=== PATIENT | male | born 1985 ===

== ENCOUNTER 2024-04-14 14:13 | Emergency (ER) | payer MEDICAID, SELFPAY ==
[2024-04-14 14:16] VITALS: BP 113/78; PULSE 95; RESP 16; TEMP 37.1; O2SAT 98
--- NOTE | 2024-04-14 14:29 | ED.GENADUL_ITS ---
Discharge Plan Discharge Details Chief Complaint: Vascular Primary Care Provider: Olga Alfredo ED Provider: Brittany Hoff Home Meds and New Rx's Prescriptions: No Action duloxetine 30 mg capsule,delayed release(DR/EC) 30 mg PO DAILY Patient Comments: TAKE ONE CAPSULE BY MOUTH EVERY DAY clonidine HCl 0.1 mg tablet 0.1 mg PO BID PRN Patient Comments: TAKE ONE TABLET BY MOUTH TWICE A DAY NEEDED FOR ANXIETY HPI General Date/Time Provider Initiated Documentation: 04/14/24 14:20 . Limitations to Documentation: no limitations . Information obtained by: patient, family (mom), RN notes reviewed and old records reviewed . History of Present Illness 38 year old M presents to the emergency department with the chief complaint of BLE edema, calf pain, described as moderate and similar to prior episodes, Quality is described as aching, and is localized to the lower extremity. Patient reports no radiation. Patient started experiencing this day(s) (2) and it has been constant. No relieving factors improve symptom(s), and other things that improve symptom(s), Other factors that worsen symptoms (legs in dependent position) . Patient notes no other symptoms.. Patient did receive the following treatments prior to arrival, none Related Data Home Medications Medication Instructions Recorded Confirmed clonidine HCl 0.1 mg tablet 0.1 mg PO BID PRN 04/14/24 04/14/24 duloxetine 30 mg capsule,delayed 30 mg PO DAILY 04/14/24 04/14/24 release Allergies Allergy/AdvReac Type Severity Reaction Status Date / Time No Known Allergies Allergy Verified 04/14/24 14:19 General Stated Complaint: Vascular CHERYL: 3 Review of Systems Constitutional Constitutional: Reports as per HPI, Denies chills, Denies fever(s), Denies headache(s), Denies lethargy and Denies poor appetite Eyes Eyes: Denies change in vision ENT Ears, Nose, Mouth, and Throat: Denies dizziness and Denies headache(s) Cardiovascular Cardiovascular: Reports as per HPI, Denies dyspnea and Denies dyspnea on exertio n Respiratory Respiratory: Reports as per HPI, Denies chest congestion, Denies cough, Denies pain on inspiration, Denies pain with cough, Denies dyspnea and Denies dyspnea on exertion Gastrointestinal Gastrointestinal: Reports as per HPI and Denies abdominal pain Genitourinary Genitourinary: Denies system reviewed and no additional complaints, except as documented (denies change in urinary habits) Musculoskeletal Musculoskeletal: Reports as per HPI Integumentary/Breasts Skin/Breast: Reports as per HPI Neurologic Neurologic: Reports as per HPI, Denies dizziness and Denies headache(s) Exam Const General: cooperative, comfortable, no acute distress, well developed, ill appearing chronically and intoxicated appearing (he states it is from not sleeping) Nutritional Appearance: average body habitus and well nourished Orientation: alert, awake and oriented x3 Resp Effort & Inspection: normal respiratory effort, able to speak in complete sentences and no respiratory distress Auscultation: clear to auscultation bilaterally, no rales, no rhonchi and no wheezes Cardio Rate: regular rate Rhythm: regular rhythm Heart Sounds: S1 normal and S2 normal GI Inspection: normal to inspection, no edema and non-distended Palpation: soft, no hepatosplenomegaly, not firm, no guarding, not rigid and nontender Skin Rashes: rashes noted (erythema, possible petechia to bilateral medial lower calf/ankle) Neuro General: patient alert, patient awake and patient oriented x3 Cognition: normal cognition Speech: speech normal Gait: normal gait Extrem General: capillary refill normal, calf tenderness (bilateral mild calf pain), normal gait, edema Laterality: bilateral (1+ pitting) and other (2+ distal pulses) Course Vital Signs Vital signs: Vital Signs Temperature 37.1 C 04/14/24 14:16 Pulse 95 H 04/14/24 14:16 Respiratory Rate 16 04/14/24 14:16 Blood Pressure 113/78 04/14/24 14:16 Pulse Oximetry 98 04/14/24 14:16 Temperature 37.1 C 04/14/24 14:16 Temperature Source Skin 04/14/24 14:16 Pulse 95 H 04/14/24 14:16 Respiratory Rate 16 04/14/24 14:16 Blood Pressure 113/78 04/14/24 14:16 Blood Pressure Position Sitting 04/14/24 14:16 Pulse Oximetry 98 04/14/24 14:16 Oxygen Delivery Method Room Air 04/14/24 14:16 Oxygen Flow Rate 0 04/14/24 14:16 Pain Level 6 04/14/24 14:16 Medical Decision Making Patient is a plesant 38 year old male, brought in by mom, with c/c of BLE edema that has been worsening x 2 days. Denies trauma. States he has had similar episodes in the past, typically resolves, after sleeping upright in a chair. Has had calf pain. Denes SOB or CP. No hx of DVT, not anticoagulated. Was seen by PCP, they are concerned for possible DVT, recommended evaluation and US in the ED. PMH signficant for chronic pain syndrome, unspecified edema, opioid dependence, depression. He states he is not using illicit substances currently, no ETOH. Has long hx of ETOH abuse though. Mostly stays in bed, on his phone. He has developed cervical deformity which he and mom states are associated with looking at phone all day, starting PT soon. He has been working with PCP to manage depression. Denies fevers/chills. On exam, patient appears frail and chronically ill. He has BLE edema, some redness medially, possible petechia. Exam is not consistent with cellulitis. He has2+ distal pulses. Edema stops mid calf, he does have pain with palpation posteriorly. Sensation intact. No hepatomegally, normal cardiac exam. No personal hx of cardiac issues although mom states family hx of CHF and HTN. PCP primarily concerned for DVT, will obtain US prior to tech leaving. FINDINGS: There is no evidence of intraluminal thrombus and there is normal compression and augmentation demonstrated within the common femoral veins, femoral veins, and popliteal veins of both lower extremities. In the calves the interrogated veins also exhibit normal compression/ augmentation properties. The greater saphenous veins also appear patent as do the saphenofemoral junctions bilaterally.. IMPRESSION: 1. No ultrasound evidence of DVT in either lower extremity. Reevaluated the patient. His legs do not look acutely infected. Without finding of DVT, considered other systemic causes of BLE edema and redness such as liver disease, cardiac issues. Will obtain blood work. He does appear to be intoxicated although patient and family state it is from not sleeping, will obtain UDS as well. At the end of my shift, care transitioned to [facility] with labs pending. Quality:SDOH Health Related Social Needs: No Data to Display [facility] Social History Smoking/Tobacco Use Status: Never Smoking risk assessment performed?: Yes Alcohol Intake: never Drug use: Never Substance use type: does not use Do you feel safe at home: Yes Do you feel safe in your relationship?: Yes
--- NOTE | 2024-04-14 14:30 | DI.US_ITS ---
Exam(s) US EXTREMITY VENOUS BI EXAM: US EXTREMITY VENOUS BI CLINICAL HISTORY: BLE swelling, calf pain TECHNIQUE: Grayscale, color, and doppler imaging of the deep venous system of both lower extremities was performed. COMPARISON: No exams were available for comparison FINDINGS: There is no evidence of intraluminal thrombus and there is normal compression and augmentation demons trated within the common femoral veins, femoral veins, and popliteal veins of both lower extremities. In the calves the interrogated veins also exhibit normal compression/ augmentation properties. The greater saphenous veins also appear patent as do the saphenofemoral junctions bilaterally.. IMPRESSION: 1. No ultrasound evidence of DVT in either lower extremity. DATA REPOSITORY:
[2024-04-14 14:54] VITALS: RESP 16
--- NOTE | 2024-04-14 15:49 | ED.PROG_ITS ---
Date of service: 04/14/24 Time of Service: 15:49 Medical Decision Making This dictation utilizes [id number] dictation software and may contain unedited grammatical errors. Patient seen in sign-out from Brittany Hoff PA-C, please see her complete note. Essentially, this 38 y/o frail chronically ill M with substance abuse issues in the past presents to ED today with a chief complaint of referred by PCP for possible DVT, with negative U/S performed prior to sign-out. Provider added labs to work-up other causes of LE edema like liver pathology and cardiac pathology prior to sign-out. Prior provider does not believe that there is any infectious etiology going on and is checking basic labs for signs of possible CHF or liver dysfunction as cause of the patient's alcohol history. Patients' medical history: Past history of alcohol abuse disorder, sedentary lifestyle. Family and social history: Lives at home with his mom, very sedentary. Pertinent exam findings / vital signs include cachectic, some hemosiderin deposition in his feet, no calf swelling, suspect dependent edema due to sedentary lifestyle and gravity. Differential / pathologies of concern include CHF, liver dysfunction, kidney dysfunction, lower extremity edema. Diagnostic studies of: -Reviewed ultrasound which was negative for DVT. -CBC is benign -Mild anemia -Coags are unremarkable -No kidney dysfunction -Albumin normal, BNP normal -UA benign -UDS shows positive for barbiturates, amphetamines, benzodiazepines Interventions of: -none, recommend PCP f/u with significant ruleout of emergent pathology. ED Course/Assessment/Plan: [ ]. Findings not consistent with [ ]. Disposition of [ ]. Patient verbalized understanding of the plan and return to ED criteria and engaged in shared decision making. Medical Records Medical records reviewed: Yes I reviewed the patient's medical records. Imaging Data Radiologic Study: Attestation: I personally reviewed and interpreted this imaging study as follows: Imaging: Ultrasound Radiologist's impression: EXAM: US EXTREMITY VENOUS BI CLINICAL HISTORY: BLE swelling, calf pain TECHNIQUE: Grayscale, color, and doppler imaging of the deep venous system of both lower extremities was performed. COMPARISON: No exams were available for comparison FINDINGS: There is no evidence of intraluminal thrombus and there is normal compression and augmentation demonstrated within the common femoral veins, femoral veins, and popliteal veins of both lower extremities. In the calves the interrogated veins also exhibit normal compression/ augmentation properties. The greater saphenous veins also appear patent as do the saphenofemoral junctions bilaterally.. IMPRESSION: 1. No ultrasound evidence of DVT in either lower extremity. Lab Data Lab results reviewed: Yes I reviewed the patient's lab results. Labs: Laboratory Tests Range/Units 04/14/24 04/14/24 15:32 16:57 WBC (4.4-10.8) 10^3/uL 7.86 RBC (4.36-5.78) 10^6/uL 3.67 L Hgb (13.5-17.5) g/dL 11.3 L Hct (40.0-50.0) % 33.6 L MCV (80-95) fL 92 MCH (27.0-33.0) pg 30.8 MCHC (32.0-36.0) % 33.6 RDW (11.8-14.1) % 12.9 Plt Count (130-400) 10^3/uL 219 MPV (8.0-11.0) fL 9.7 Immature Gran % % 0.3 Neutrophils % % 60.9 Lymphocytes % % 22.5 Monocytes % % 11.1 Eosinophils % % 4.8 Basophils % % 0.4 Nucleated RBC % (0.0-0.3) % 0.0 Absolute Neutrophils (1.2-6.7) 10^3/uL 4.79 Absolute Lymphocytes (1.2-3.4) 10^3/uL 1.77 Absolute Monocytes (0.1-0.8) 10^3/uL 0.87 H Absolute Eosinophils (0.0-0.7) 10^3/uL 0.38 Absolute Basophils (0.0-0.2) 10^3/uL 0.03 PT (9.1-11.1) sec 10.0 INR (0.9-1.1) 1.0 APTT (23.6-32.8) sec 29.4 Sodium (136-145) mmol/L 137 Potassium (3.5-5.1) mmol/L 3.8 Chloride (98-107) mmol/L 101 Carbon Dioxide (21.0-32.0) mmol/L 29.9 Anion Gap (3-11) mmol/L 6.1 BUN (7-18) mg/dL 9 Creatinine (0.70-1.30) mg/dL 0.6 L Est GFR (CKD-EPI 2020) (mL/min/1.73m2) 125.15 Glucose (74-106) mg/dL 98 Calcium (8.5-10.1) mg/dL 8.6 Magnesium (1.8-2.4) mg/dL 2.0 Total Bilirubin (0.2-1.0) mg/dL 0.3 AST (15-37) U/L 14 L ALT (16-63) U/L 16 Alkaline Phosphatase (46-116) U/L 58 NT-Pro-B Natriuret Pep (<300) pg/mL 47 Total Protein (6.4-8.2) g/dL 6.6 Albumin (3.4-5.0) g/dL 3.4 TSH (0.36-3.74) uIU/mL 0.98 Urine Color (Yellow) Yellow Urine Clarity (Clear) Clear Urine pH (5-8) 7.0 Ur Specific [place] (1.005-1.025) 1.015 Urine Protein (Neg-Trace) mg/dL Negative Urine Ketones (Negative) mg/dL Negative Urine Blood (Negative) Negative Urine Nitrite (Negative) Negative Urine Bilirubin (Negative) Negative Urine Urobilinogen (Up to 0.2) mg/dL 0.2 Ur Leukocyte Esterase (Negative) Negative Urine Glucose (Negative) mg/dL Negative Urine Opiates Screen (Negative) Negative Urine Methadone Screen (Negative) Negative Ur Barbiturates Screen (Negative) Positive A Ur Tricyclics Screen (Negative) Negative Ur Amphetamines Screen (Negative) Positive A U Benzodiazepines Scrn (Negative) Positive A Urine Cocaine Screen (Negative) Negative Ur THC Screen (Negative) Negative Quality:SDOH Health Related Social Needs: No Data to Display Sign Out Sign Out Data: Sign Out Comment: Care transitioned to [facility] with labs pending, patient here with BLE edema. Last updated by Brittany Hoff PA at 04/14/24 15:37 Discharge Plan Disposition Patient Disposition: Home Condition: Stable Discharge Details Clinical Impression: Ankle edema, bilateral Primary Care Provider: Olga Alfredo ED Provider: Casey Walker Home Meds and New Rx's Prescriptions: Continued duloxetine 30 mg capsule,delayed release(DR/EC) 30 mg PO DAILY Patient Comments: TAKE ONE CAPSULE BY MOUTH EVERY DAY clonidine HCl 0.1 mg tablet 0.1 mg PO BID PRN Patient Comments: TAKE ONE TABLET BY MOUTH TWICE A DAY NEEDED FOR ANXIETY Discharge Instructions Instructions: Swelling Additional Instructions: You were seen in the emergency department for the ankle edema bilateral lower extremities with some discoloration consistent with hemosiderin deposition which is the iron that is being oxidized from your blood. You have significant muscle wasting of the lower extremities due to your sedentary lifestyle and your calf muscles are the primary pump to pump fluid back up out of your legs, I think the sedentary lifestyle combined with dependent edema from gravity is a source of your lower extremity edema. There is no evidence for infection, kidney dysfunction, liver dysfunction, CHF on your laboratory workup and your ultrasound was negative for DVT. There is no sign of cellulitis on exam and you are neurovascularly intact in bilateral feet. Please follow-up with your primary care provider for further workup for this dependent edema I recommend that you continue physical therapy to build strength. Please return for any severe increase in leg pain, redness, warmth to touch, drainage of pus from the area, lesions or ulcerations, inability to ambulate. Referrals: Olga Alfredo [Primary Care Provider] -
[2024-04-14 15:52] LABS: Abs Immature Grans 0.02 10^3/uL (0.0-0.06); Absolute Basophil Count 0.03 10^3/uL (0.0-0.2); Absolute Eosinophil Count 0.38 10^3/uL (0.0-0.7); Absolute Lymphocyte Count 1.77 10^3/uL (1.2-3.4); Absolute Monocyte Count 0.87 10^3/uL (0.1-0.8); Absolute Neutrophil Count 4.79 10^3/uL (1.2-6.7); Basophils % 0.4 %; Eosinophils % 4.8 %; HCT 33.6 % (40.0-50.0); HGB 11.3 g/dL (13.5-17.5); Immature Grans % 0.3 %; Lymphocytes % 22.5 %; MCH 30.8 pg (27.0-33.0); MCHC 33.6 % (32.0-36.0); MCV 92 fL (80-95); MPV 9.7 fL (8.0-11.0); Monocytes % 11.1 %; Neutrophils % 60.9 %; Platelet Count 219 10^3/uL (130-400); RBC 3.67 10^6/uL (4.36-5.78); RDW 12.9 % (11.8-14.1); WBC 7.86 10^3/uL (4.4-10.8)
[2024-04-14 16:10] LABS: PTT Activated 29.4 sec (23.6-32.8)
[2024-04-14 16:17] LABS: ALT 16 U/L (16-63); AST 14 U/L (15-37); Albumin 3.4 g/dL (3.4-5.0); Alkaline Phosphatase 58 U/L (46-116); Anion Gap 6.1 mmol/L (3-11); BUN 9 mg/dL (7-18); Bilirubin, Total 0.3 mg/dL (0.2-1.0); CO2 29.9 mmol/L (21.0-32.0); CREATININE 0.6 mg/dL (0.70-1.30); Calcium 8.6 mg/dL (8.5-10.1); Chloride 101 mmol/L (98-107); Estimated GFR 125.15 (mL/min/1.73m2); Glucose 98 mg/dL (74-106); Potassium 3.8 mmol/L (3.5-5.1); Sodium 137 mmol/L (136-145); TSH (W/Ref FT4) 0.98 uIU/mL (0.36-3.74); Total Protein 6.6 g/dL (6.4-8.2)
[2024-04-14 16:34] LABS: NT-proBNP 47 pg/mL (<300)
[2024-04-14 17:08] LABS: Bilirubin Negative (Negative); Blood Negative (Negative); Clarity Clear (Clear); Glucose Negative (Negative); Ketones Negative (Negative); Leukocyte Esterase Negative (Negative); Nitrite Negative (Negative); Specific Gravity 1.015 (1.005-1.025); Urobilinogen 0.2 mg/dL (Up to 0.2)
[2024-04-14 17:20] LABS: *AMPHETAMINES SCREEN URINE Positive (Negative); *BARBITURATES SCREEN URINE Positive (Negative); *BENZODIAZEPINES SCREEN URINE Positive (Negative); Cannabinoids THC Negative (Negative); Cocaine Screen,Urine Negative (Negative); METHADONE URINE SCREEN Negative (Negative); OPIATES URINE SCREEN Negative (Negative)
[2024-04-14 17:21] LABS: Tricyclic Antidepressants Negative (Negative)
[2024-04-14 17:58] VITALS: BP 113/78; PULSE 90; RESP 16; TEMP 37.1; O2SAT 98
== END 2024-04-14 16:01 | disposition home or self-care (01) ==
PROVIDERS: Physician Assistant; Emergency Provider Physician Assistant; PCP Nurse Practitioner Family
DX: R22.43 Localized swelling, mass and lump, lower limb, bilateral (principal)
CPT/HCPCS: 00123; 36415; 80053; 80307; 99284; 81003; 83735; 83880; 84443; 85025; 85610; 85730; 93970; 99283

== ENCOUNTER 2024-11-13 17:42 | Outpatient (CLI) | payer MEDICAID, SELFPAY ==
--- NOTE | 2024-11-13 17:45 | DI.RAD_ITS ---
Exam(s) XR FOOT LT COMPLETE XR HEEL LT OS CALCIS EXAM: XR FOOT LT COMPLETE and XR heel LT os calcis CLINICAL HISTORY: r/o osteo. TECHNIQUE: 2D digital imaging was performed of the left calcaneus and foot. Five images were obtain ed. AP, oblique and lateral views were obtained. COMPARISON: There are no priors for comparison. FINDINGS: BONES: No acute fracture is present. No bony destructive lesion is seen. JOINTS: No dislocation present. The joint spaces are well maintained. SOFT TISSUE: Normal. IMPRESSION: No radiographic evidence to suggest osteomyelitis. DATA REPOSITORY: RADIATION DOSE DELIVERED:
--- NOTE | 2024-11-13 19:11 | DI.VRAD_ITS ---
PROCEDURE INFORMATION: Exam: XR Left Foot Exam date and time: 11/13/2024 5:59 PM Age: 39 years old Clinical indication: Other: Foot ulcer, R/O osteo TECHNIQUE: Imaging protocol: Radiologic exam of the left foot. Views: 3 or more views. COMPARISON: US EXTREMITY VENOUS BI 04/14/2024 2:43 PM FINDINGS: Bones/joints: Osseous alignment is normal. No acute fracture. No significant arthritic change. Soft tissues: Normal. IMPRESSION: Negative left foot Dictated and Authenticated by: Oswald Joyner MD. Ordering:KAMLESH Bruce MD
--- NOTE | 2024-11-13 19:12 | DI.VRAD_ITS ---
PROCEDURE INFORMATION: Exam: XR Left Calcaneus Exam date and time: 11/13/2024 6:01 PM Age: 39 years old Clinical indication: Other: Foot ulcer, R/O osteo TECHNIQUE: Imaging protocol: Radiologic exam of the left calcaneus. Views: 2 or more views. COMPARISON: CR XR FOOT LT COMPLETE 11/13/2024 5:59 PM FINDINGS: Bones/joints: Osseous alignment is normal. No acute fracture. No periostitis, osseous erosion or other findings concerning for osteomyelitis. Soft tissues: Unremarkable. No radiodense foreign body IMPRESSION: No osseous abnormality Dictated and Authenticated by: Oswald Joyner MD. Ordering:KAMLESH Bruce MD
== END 2024-11-13 18:02 ==
LOC: DI 17:45
PROVIDERS: PCP Nurse Practitioner Family; Visit Provider Physician Assistant
DX: L97.529 Non-pressure chronic ulcer of other part of left foot with unspecified severity (principal)
CPT/HCPCS: 73630; 73650